=== PATIENT | male | born 1960 | race Caucasian/White ===

== ENCOUNTER 2025-03-01 16:10 | Outpatient (CLI) | payer OTHER, SELFPAY ==
[2025-03-01 22:27] LABS: PCR FLU A Negative PCR FLU A (Negative); PCR FLU B Negative PCR FLU B (Negative); PCR RSV Negative PCR RSV (Negative); SARS PCR* POSITIVE SARS-CoV-2 (Negative)
== END 2025-03-01 16:11 | disposition home or self-care (01) ==
LOC: FBOREF 16:11
PROVIDERS: PCP Family Medicine; Visit Provider Family Medicine
DX: R05.9 Cough, unspecified (principal); R50.9 Fever, unspecified; R51.9 Headache, unspecified
CPT/HCPCS: 87631